=== PATIENT | female | born 2000 | race Caucasian/White ===

== ENCOUNTER 2020-10-08 22:29 | Emergency (ER) | payer MEDICAID, SELFPAY ==
[2020-10-08 22:36] VITALS: BP 142/103; PULSE 83; RESP 20; TEMP 36.6; O2SAT 99; BMI 24.5
--- NOTE | 2020-10-08 23:08 | ED.DENTAL ---
HPI - Dental/Oral General Chief complaint: Dental/Oral Stated complaint: tooth ache x2 weeks Source: patient and EMS Mode of arrival: EMS Limitations: no limitations History of Present Illness HPI Narrative: A 20-year-old male, born female, on testosterone presents via EMS for a toothache that he has had for approximately 2 weeks. He has seen a dentist but was unable to get his tooth pulled. He has been using Orajel and Tylenol for pain management. He does not describe any fevers, chills, chest pain or pressure, palpitations, difficulty swallowing, tongue swelling, changes in voice, abdominal pain, abdominal distention, dysuria, hematuria, or any other concerning symptoms. MD Complaint: tooth pain Location: Tooth # Teeth map: 1. Onset (ago): week(s) (To) Duration: constant Severity: moderate Severity scale (1-10): 7 Relieving factors: NSAIDs Exacerbating factors: chewing, cold, heat and drinking fluids Context: history of dental caries and poor dental care Treatment prior to arrival: topical analgesic and oral analgesic Related Data Home Medications Medication Instructions Recorded Confirmed testosterone cypionate 0.3 ml IM QWEEK 10/08/20 10/08/20 Previous Rx's Medication Instructions Recorded amoxicillin-pot clavulanate 1 tab PO Q12H 10 Days #20 tab 10/08/20 [Augmentin] Allergies Allergy/AdvReac Type Severity Reaction Status Date / Time kiwi [KIWI] Allergy Intermediate URTICARIA Verified 10/08/20 22:43 dextroamphetamine Allergy Unknown UNKNOWN Verified 10/08/20 22:43 [From DEXEDRINE] nicotine patch Allergy Mild redness, Uncoded 10/08/20 22:43 itching Review of Systems Review of Systems: Constitutional: No Fever, No Chills ENT/Mouth: No swallowing difficulty, no change in voice, positive dental pain, now jaw pain, no facial swelling Eyes: No Eye Pain, No Swelling Cardiovascular: No Chest Pain, No SOB Respiratory: No Cough, No Sputum, No Wheezing, No Smoke Exposure, No Dyspnea Gastrointestinal: No Nausea, No Vomiting, No Diarrhea Genitourinary: No Dysuria Musculoskeletal: No Myalgias Skin: No rash Neuro: No Weakness, No Numbness, No Headache Yes all other systems are reviewed and are negative [facility] Past Medical History Attestation statement: The following information was validated with the patient. Source: old records reviewed Medical History Arthritis Asperger syndrome Asthma [id number] transgender person Transgender Social History Social History Advance Directives: No Advance Directives Information Provided: No Patient : No Physical Exam Vital Signs: Vital Signs: Last Vital Signs Temp 97.8 F 10/08/20 22:36 Pulse 83 10/08/20 22:36 Resp 20 10/08/20 22:36 BP 142/103 H 10/08/20 22:36 Pulse Ox 99 10/08/20 22:36 Body Mass Index 24.5 Appearance: Alert. Oriented X3. No acute distress. Eyes: Pupils equal, round and reactive to light. ENT: Pharynx normal. Multiple dental caries, no abscess or gingival erythema. Neck: Normal inspection. Neck supple. CVS: Normal heart rate and rhythm. Pulses normal. Respiratory: No respiratory distress. Breath sounds normal. Abdomen: Soft and nontender. Skin: Skin warm and dry. Normal skin color. Normal skin turgor. Extremities: No lower extremity edema. Neuro: No motor deficit. No sensory deficit. Course Course Course Narrative: 20-year-old male presents via EMS with dental pain for 2 weeks. Plan of care is to give Toradol and Augmentin. Will refer to dental, patient given list of phone numbers to call. Patient is afebrile, able to open and close his mouth, able to swallow without difficulty. No indication of Carlton's, no cervical lymphadenopathy. Plan of care to discharge home. MDM - Dental/Oral Differential Diagnosis Differential diagnosis: Likely gingival abscess, dental caries, toothache and dental abscess Medical Records Attestation: I reviewed the patient's medical records. Discharge Plan Discharge Clinical Impression: Dental caries, Toothache Patient Disposition: Home, Self-Care Instructions: Toothache (ED) Additional Instructions: Please follow-up with a dentist. We are treating your extensive dental caries with Augmentin. Please take Augmentin twice a day for the next 10 days. Continue to use Orajel, Tylenol and Motrin as needed for pain management. Again, follow-up with the dentist. Thank you for choosing this emergency department for evaluation. Please follow-up with primary care physician as needed. Return to the emergency department for any new, concerning, or worsening symptoms. Prescriptions: New amoxicillin-pot clavulanate [Augmentin] 875-125 mg tablet 1 tab PO Q12H 10 Days Qty: 20 RF: 0 No Action testosterone cypionate 200 mg/mL oil 0.3 ml IM QWEEK RF: 0 Interventions: ED Discharge Assessment Last Done: 10/09/20 00:13 Discharge Date/Time: 10/08/20 23:41
[2020-10-08] MEDS: Ketorolac Tromethamine 60 MG/2 ML VIAL IM (23:36)
[2020-10-08] MEDS: Amoxicillin/Potassium Clav 875 MG TABLET PO (23:37)
== END 2020-10-08 23:41 | disposition home or self-care (01) ==
PROVIDERS: Emergency Provider Emergency Medicine; PCP Family Medicine
DX: K08.89 Other specified disorders of teeth and supporting structures (principal); K02.9 Dental caries, unspecified; F64.0 Transsexualism; F84.5 Asperger's syndrome; Z79.890 Hormone replacement therapy
CPT/HCPCS: 96372; 99284; J1885

== ENCOUNTER 2020-10-22 19:29 | Emergency (ER) | payer MEDICAID, SELFPAY ==
[2020-10-22 20:26] VITALS: BP 127/70; PULSE 63; RESP 16; TEMP 37.2; O2SAT 98; BMI 24.7
--- NOTE | 2020-10-22 21:55 | ED.SKABFB ---
HPI - Skin/Abscess/Foreign Bdy General Chief complaint: Skin/Abscess/Foreign Body Stated complaint: std? Time Seen by Provider: 10/22/20 21:39 History of Present Illness HPI narrative: Patient is a 20-year-old female shaved her pubic area subsequently noted a rash. Patient denies any fever chills. No vaginal discharge. The rash is over bilateral areas where she shaved. Patient is from home. Related Data Home Medications Medication Instructions Recorded Confirmed testosterone cypionate 0.3 ml IM QWEEK 10/08/20 10/08/20 Previous Rx's Medication Instructions Recorded amoxicillin-pot clavulanate 1 tab PO Q12H 10 Days #20 tab 10/08/20 [Augmentin] Allergies Allergy/AdvReac Type Severity Reaction Status Date / Time kiwi [KIWI] Allergy Intermediate URTICARIA Verified 10/22/20 20:25 dextroamphetamine Allergy Unknown UNKNOWN Verified 10/22/20 20:25 [From DEXEDRINE] nicotine patch Allergy Mild redness, Uncoded 10/08/20 22:43 itching Review of Systems Review of Systems: Constitutional: No Weight loss, No Fever, No Chills, No Night Sweats, No Fatigue, No Malaise ENT/Mouth: No Hearing loss, No Ear Pain, No Nasal Congestion, No Sinus Pain, No Hoarseness, No sore throat, No Rhinorrhea, No Swallowing Difficulty Eyes: No Eye Pain, No Swelling, No Redness, No Foreign Body, No Discharge, No Vision Changes Cardiovascular: No Chest Pain, No SOB, No Dyspnea on Exertion, No Orthopnea, No Edema, No Palpitations Respiratory: No Cough, No Sputum, No Wheezing, No Smoke Exposure, No Dyspnea Gastrointestinal: No Nausea, No Vomiting, No Diarrhea, No Constipation, No abdominal Pain, No Hematochezia, No Melena Genitourinary: no irregular bleeding, No Dysuria, No Urinary Frequency, No Hematuria, No Urinary Incontinence, No Urgency, No Flank Pain, No Urinary Flow Changes, No Hesitancy Musculoskeletal: No joint pain, No Myalgias, No Joint Swelling Skin: Possible rash over the shave area in the pubic area Neuro: No Weakness, No Numbness, No Paresthesias, No Loss of Consciousness, No Dizziness, No Headache Psych: No Anxiety/Panic, No Depression, No SI/HI/AH/VH, No Social Issues, Heme/Lymph: No Bruising, No Bleeding,No Lymphadenopathy Endocrine: No Polyuria, No Polydipsia, No Temperature Intolerance [facility] Past Medical History Medical History Arthritis Asperger syndrome Asthma [id number] transgender person Transgender Social History Social History Advance Directives: No Advance Directives Information Provided: No Patient : No Physical Exam Vital Signs: Vital Signs: Last Vital Signs Temp 98.9 F 10/22/20 20:26 Pulse 63 10/22/20 20:26 Resp 16 10/22/20 20:26 BP 127/70 10/22/20 20:26 Pulse Ox 98 10/22/20 20:26 Body Mass Index 24.7 Appearance: Alert. Oriented X3. No acute distress. Eyes: Pupils equal, round and reactive to light. ENT: Pharynx normal. Neck: Normal inspection. Neck supple. No lymph nodes noted. No crepitus CVS: Normal heart rate and rhythm. Pulses normal. Normal S1 and S2 Respiratory: No respiratory distress. Breath sounds normal. No Wheezing. No rales Abdomen: Soft and nontender. No rigidity. No distention. good BS x4 Skin: Exam of the pubic area done with Nurse skate present. Patient has female genitalia. Over areas where patient is shaved. There is a fine red rash. With mild folliculitis noted. Extremities: No lower extremity edema. Neurovascular intact to all extremities. No Lacerations. No Rash Neuro: Oriented X 3. No motor deficit. No sensory deficit. Moving all extermities. No slurred speech MDM - Skin/Abscess/Foreign Bdy MDM Narrative Medical decision making narrative: Most likely patient has pseudo folliculitis from shaving. Will discharge patient home. Close follow-up outpatient basis. Keep the area clean. Do not shave anymore. May use bacitracin as needed. Discharge Plan Discharge Clinical Impression: Folliculitis of perineum Patient Disposition: Home, Self-Care Instructions: Folliculitis (ED) Prescriptions: No Action testosterone cypionate 200 mg/mL oil 0.3 ml IM QWEEK RF: 0 amoxicillin-pot clavulanate [Augmentin] 875-125 mg tablet 1 tab PO Q12H 10 Days Qty: 20 RF: 0 Referrals: Luma Tsai MD [Primary Care Provider] - 2 days (Keep the area clean. Do not shave anymore. Bacitracin as needed.)
== END 2020-10-22 22:10 | disposition home or self-care (01) ==
PROVIDERS: Emergency Provider Emergency Medicine Emergency Medical Services; PCP Family Medicine
DX: L73.8 Other specified follicular disorders (principal); F64.0 Transsexualism
CPT/HCPCS: 99282; 99283